=== PATIENT | female | born 1965 | race Caucasian/White ===

== ENCOUNTER 2016-09-11 23:34 | Emergency (ER) | payer OTHER ==
--- NOTE | ~2016-09-11 | CR63 ---
[facility]. [facility] A Service of [facility] & [facility] RADIOLOGY TEXT RESULTS PATIENT: RAKESH BATISTA LOCATION: SED : 69 UNIT #: [id number] AGE: [address]: JOSE BECERRA SEX: F ORDER DR: [id number] [address] [address] [id number] E MR#: [id number] Acc #: [id number] NAME: RAKESH BATISTA : 1965 SEX: F STUDY DATE/TIME: 09/11/2016 23:32 UNIT: SED ROOM: STUDY DESCRIPTION: CR Chest 2 View Attending Physician: Jose Becerra Ordering Physician: Physician Non-Staff Primary Care Physician: Violeta Londono M.D. MEDICAL IMAGING REPORT This report is preliminary unless electronic signature is present. EXAM PA lateral chest, 09/11/2016 at 23:32 HISTORY 51-year-old female with cough, congestion, nausea, vomiting and wheezing for 1 week. Asthma. COMPARISON Acute abdominal series, 12/19/2015 FINDINGS No acute airspace disease. Heart size within normal limits. No pleural effusion or pneumothorax or acute osseous abnormality. Presumed cholecystectomy changes. IMPRESSION No acute cardiopulmonary findings. Dictated by... Sanjana Du M.D. THIS IS AN ELECTRONICALLY VERIFIED REPORT Sanjana Du M.D. at 09/16/2016 8:38 AM CHARY/michelle TD: 09/12/2016 09:47 JOB #: [id number] MEDICAL IMAGING REPORT Page 1 of 1
[~2016-09-11 23:34] MED LIST: ALBUTEROL17 GM INH; ANTI-INFLAMMATORY; BACITRACIN15 GM OINT TOP; BLACK COHOSH40 M1 PO; CIPRO PO; CLARITIN10 M2; GABAPENTIN300 MG PO; GUAIFENESIN W/CO5 ML PO; IBUPROFEN PO; LORTAB 5/500 TA1 TA1 PO; MELOXICAM15 MG DOB; MOTRIN PO; NEURONTIN PO; NORCO 7.5MG/325MG PO; ORUDIS75 M1 PO; PAMPRIN MULTI-S1 TAB PO; PRILOSEC20 MG PO; ROBAXIN 750750 M1 DOB; TAMIFLU75 M1 PO; TYLENOL #3 PO; VISTARIL PO; VOLTAREN75 MG PO
[2016-09-11 23:55] LABS: INFLUENZA A NEG (NEG); INFLUENZA B NEG (NEG)
== END 2016-09-12 00:45 | disposition home or self-care (01) ==
LOC: SED 23:34
PROVIDERS: Physician Assistant
DX: J45.21 Mild intermittent asthma with (acute) exacerbation (principal); J20.9 Acute bronchitis, unspecified; Z79.899 Other long term (current) drug therapy
CPT/HCPCS: 71020; 87804; 99283